=== PATIENT | male | born 1970 | race Caucasian/White ===

== ENCOUNTER 2016-12-19 20:16 | Emergency (ER) | payer OTHER ==
[~2016-12-19] VITALS: Ht 175.3 cm; Wt 76.8 kg
[2016-12-19 20:18] VITALS: BP 143/86; PULSE 85; RESP 16; O2SAT 99
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
[2016-12-19] MEDS ORDERED: _oxyCODONE/APAP 5-325 mg Tablet PO PRN (21:50)
[2016-12-19] MEDS ORDERED: HYDROmorphone 1 mg/mL Inj IM ONE (21:50)
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
[2016-12-19 22:12] VITALS: BP 132/88; PULSE 80; RESP 16; O2SAT 99
== END 2016-12-19 22:13 | disposition home or self-care (01) ==
LOC: SED 20:16
DX: S43.102A Unspecified dislocation of left acromioclavicular joint, initial encounter (principal); V18.0XXA Pedal cycle driver injured in noncollision transport accident in nontraffic accident, initial encounter; Y93.55 Activity, bike riding; Y92.828 Other wilderness area as the place of occurrence of the external cause; Y99.8 Other external cause status
CPT/HCPCS: 73030; 96372; 99284; J1170; J1885